=== PATIENT | male | born 1955 | race Caucasian/White ===

== ENCOUNTER 2016-08-18 19:09 | Emergency (ER) | payer MEDICARE, MEDICAID ==
[2016-08-18] MEDS ORDERED: diphenhydrAMINE HCl 50 MG/ML 1 ML VIAL ONE (19:22)
[2016-08-18] MEDS ORDERED: Metoprolol Tartrate 5 MG/5 ML VIAL ONE ×2 (19:25→19:27)
--- NOTE | 2016-08-18 19:36 | RAD ---
PORTABLE CHEST 08/18/16 COMPARISON: Comparison is made with a 01/03/15 study. This portable film at 1912 shows a normal sized heart and clear lungs. No infiltrate or effusion was seen. There is no vascular congestion or edema. A few tiny calcified granulomas are suggested in th e lungs. The trachea is midline. Scoliosis is noted as before. IMPRESSION: No acute thoracic finding. POS: HOME
[2016-08-18 19:37] LABS: #Basophils 0.1 thou/uL (0.0-0.2); #Eosinphils 0.3 thou/uL (0.0-0.7); #Lymphocytes 2.1 thou/uL (1.20-3.40); #Monocytes 0.8 thou/uL (0.11-0.59); #Neutrophils 6.1 thou/uL (1.40-6.50); %Eosinophils 3.2 % (0.0-10.0); %Lymphocytes 22.3 % (21.0-51.0); %Monocytes 8.6 % (0.0-10.0); %Neutrophils 64.9 % (42.0-75.0); Hemoglobin 13.4 g/dL (14.0-18.0); Mean Corpuscular HGB CONC 34.3 g/dL (32.0-36.0); Mean Corpuscular Hemoglobin 32.7 pg (27.0-31.0); Mean Corpuscular Volume 95.2 fl (80.0-94.0); Mean Platelet Volume 7.5 fL (7.4-10.4); Platelet Count 263 thou/uL (130-400); RBC Distribution Width 11.7 % (11.5-14.5); Red Blood Cell (RBC) Count 4.11 mill/uL (4.70-6.10); White Blood Cell (WBC) Count 9.3 thou/uL (4.8-10.8)
[2016-08-18 19:52] LABS: INR-International Normal Ratio 1.1; PTT 27.7 SEC (22.9-36.1)
[2016-08-18 19:57] LABS: ALT (SGPT) 67 U/L (0-55); AST (SGOT) 68 U/L (5-34); Alcohol Less than 10 mg/dL (Less than 10); Alkaline Phosphatase 54 U/L (40-150); Anion Gap 15 mmol/L (10-20); BUN (Urea Nitrogen) 22 mg/dL (8.4-25.7); Bilirubin, Total 0.4 mg/dL (0.2-1.2); Calc. Creatinine Clearance 0 mL/min (70-130); Carbon Dioxide 23 mmol/L (22-29); Chloride 105 mmol/L (98-107); Estimated GFR-MDRD 64; Globulin 3.9 g/dL (2.4-3.5); Glucose 117 mg/dL (70-105); Potassium 3.5 mmol/L (3.5-5.1); Protein, Total 7.9 g/dL (6.0-8.3); Sodium 139 mmol/L (136-145)
[2016-08-18 19:59] LABS: CKMB 3.4 ng/mL (0-6.6); Troponin I 0.042 ng/mL (< 0.028)
== END 2016-08-18 21:54 | disposition short-term general hospital (02) ==
LOC: BURERS 19:09
DX: R07.2 Precordial pain (principal); I25.2 Old myocardial infarction; K57.92 Diverticulitis of intestine, part unspecified, without perforation or abscess without bleeding; G89.29 Other chronic pain; M54.9 Dorsalgia, unspecified; I10 Essential (primary) hypertension; F17.210 Nicotine dependence, cigarettes, uncomplicated; Z79.82 Long term (current) use of aspirin; Z79.899 Other long term (current) drug therapy; Z98.890 Other specified postprocedural states
CPT/HCPCS: 71010; 80053; 80307; 82553; 83880; 84484; 85025; 85610; 85730; 93005; 94760; 96361; 96374; 96375; J1200; J2270

== ENCOUNTER 2017-05-17 10:42 | Outpatient (CLI) | payer MEDICARE, MEDICAID ==
--- NOTE | 2017-05-17 21:36 | RAD ---
LUMBAR SPINE THREE VIEWS 05/17/17 Comparison is made with the 12/07/14 study. There has been extensive prior surgery in the lower back with fusion and pedicle screws posteriorly a t L4 through S1. Disc replacements have been placed at each of the attendant levels. The positioning of those disc replacements seems similar to the prior study. There is an anterior compression of the L1 vertebral body. This was present before but it is a little more pronounced along the superior end plate today than previously. If this correlates with the site of pain, then it may be more recent. The remaining disc spaces are preserved. The SI joints are symm etrical. Mild scoliosis convexed left is noted, not a new finding. The visible portions of the bony p denise seem intact. IMPRESSION: 1. Extensive postoperative changes of the lower lumbar spine which are similar in appearance to the 12/07/14 study. 2. Mild anterior compression of L1, present previously, but the superior end plate appears a bit more compressed than before. Correlate with exact site of pain. Code T POS: HOME
== END 2017-05-17 10:43 | disposition home or self-care (01) ==
LOC: BURRAD 10:42
PROVIDERS: ATTEND Family Medicine
DX: M54.5 Low back pain (principal); G89.4 Chronic pain syndrome; Z98.890 Other specified postprocedural states
CPT/HCPCS: 72100

== ENCOUNTER 2017-11-01 17:57 | Emergency (ER) | payer MEDICAID, MEDICARE ==
[2017-11-01] MEDS ORDERED: Clindamycin 150 MG CAP ONE (18:13)
[2017-11-01] MEDS ORDERED: Acetaminophen/Codeine 30-300mg Tablet ONE (18:13)
== END 2017-11-01 18:17 | disposition home or self-care (01) ==
LOC: BURERS 17:57
DX: K04.7 Periapical abscess without sinus (principal); I25.2 Old myocardial infarction; I10 Essential (primary) hypertension; F17.210 Nicotine dependence, cigarettes, uncomplicated
CPT/HCPCS: 99283

== ENCOUNTER 2017-11-08 14:04 | Emergency (ER) | payer MEDICARE ==
[2017-11-08] MEDS ORDERED: Nitroglycerin 0.4 MG TAB (25 Tab Bottle) ONE (14:10)
[2017-11-08] MEDS ORDERED: Fentanyl 100 MCG/2 ML VIAL ONE ×2 (14:15→14:46)
[2017-11-08] MEDS ORDERED: Ketorolac Tromethamine 30 MG/ML VIAL ONE (14:46)
[2017-11-08] MEDS ORDERED: Ondansetron HCl/PF 4 MG/2 ML Vial ONE (14:52)
[2017-11-08 15:10] LABS: ALT (SGPT) 69 U/L (8-55); AST (SGOT) 82 U/L (5-34); Albumin 3.7 g/dL (3.5-5.0); Alkaline Phosphatase 52 U/L (40-150); Anion Gap 17 mmol/L (10-20); BUN (Urea Nitrogen) 11 mg/dL (8.4-25.7); Bilirubin, Total 0.9 mg/dL (0.2-1.2); CKMB 0.9 ng/mL (0-6.6); Calc. Creatinine Clearance 0 mL/min (70-130); Carbon Dioxide 20 mmol/L (22-29); Chloride 105 mmol/L (98-107); Estimated GFR-MDRD 64; Globulin 3.8 g/dL (2.4-3.5); Glucose 133 mg/dL (70-105); Lipase 8 U/L (8-78); Potassium 3.6 mmol/L (3.5-5.1); Protein, Total 7.5 g/dL (6.0-8.3); Sodium 138 mmol/L (136-145); Troponin I 0.019 ng/mL (< 0.028)
[2017-11-08 15:26] LABS: #Basophils 0.1 thou/uL (0.0-0.2); #Lymphocytes 0.5 thou/uL (1.20-3.40); #Monocytes 0.2 thou/uL (0.11-0.59); #Neutrophils 4.9 thou/uL (1.40-6.50); %Basophils 1.3 % (0.0-1.0); %Eosinophils 0.2 % (0.0-10.0); %Lymphocytes 9.3 % (21.0-51.0); %Monocytes 3.2 % (0.0-10.0); Hemoglobin 14.4 g/dL (14.0-18.0); Mean Corpuscular HGB CONC 36.1 g/dL (32.0-36.0); Mean Corpuscular Hemoglobin 31.1 pg (27.0-31.0); Mean Corpuscular Volume 86.3 fL (78.0-98.0); Mean Platelet Volume 7.3 fL (7.4-10.4); Platelet Count 111 thou/uL (130-400); RBC Distribution Width 11.4 % (11.5-14.5); Red Blood Cell (RBC) Count 4.64 mill/uL (4.70-6.10); White Blood Cell (WBC) Count 5.7 thou/uL (4.8-10.8)
[2017-11-08 15:28] LABS: MDiff Complete? YES
--- NOTE | 2017-11-08 16:26 | CT ---
CT ANGIO OF THE CHEST WITH CONTRAST 11/08/[address] of the chest was performed for evaluation of chest pain and low O2 saturation. Axial slices were acquired after a bolus of IV contrast. Coronal and oblique coronal reformations were done after wards. The timing of the contrast bolus is off such that opacification of the pulmonary arteries is suboptim al. As such the study is indeterminate for pulmonary embolism, however, there is certainly no large d efects in the larger more central branches to strongly suggest emboli. Medium sized branches and dist al branches cannot be evaluated accurately. The major finding on this study is multiple patchy infiltrates, many of which have a ground glass nod ular consistency. Some have air bronchograms within them. The findings are worse in the lower lobes t watters upper, but there are findings in all lobes. The left lower lobe seems to be the most involved. E mphysematous changes are present throughout the lungs. The findings would potentially obscure seeing or definitely identifying any smaller solid nodules. I would note that there is a single more solid a ppearing 6 to 7 mm nodule in the periphery of the base of the right upper lobe on slice 45. There is no spiculation around it. The mediastinum shows some mild increase in size of nodes, some as large as 1.9 cm in size. Some sang nary artery calcifications are present, primarily in the LAD, but also a small amount in the proximal right coronary artery. There is no sign of pericardial fluid. The cardiac size seems normal. There a re no effusions. The small hiatal hernia was noted. The liver is not imaged completely but is low in density suggestin g diffuse fatty infiltration. IMPRESSION: 1. Diffuse ground glass nodular infiltrates, all lobes, worst in the bases, particularly left lo wer lobe. Atypical infection is the most likely diagnosis. Viral pneumonias, pneumocystis, fungal or other atypical entities should be considered. It is noted that the patient's prior chest x-ray appear ed normal, so these have since then. 2. Mild coronary arteriosclerosis. 3. Fatty infiltration of the liver. 4. Small hiatal hernia. Findings discussed with Dr. Vicente at 1547 on 11/08/17. POS: HOME
--- NOTE | 2017-11-08 16:27 | RAD ---
PORTABLE CHEST: 11/08/17 Comparison is made with the 08/18/16 study. Patchy infiltrates are seen throughout the lungs bilaterally, a new finding since the prior study. Th ey seem worse on the left than the right. There are no large effusions. The heart size is normal. The re does not appear to be congestion of vessels. IMPRESSION: Interval appearance of patchy pulmonary infiltrates. See CT report to follow. POS: HOME
[2017-11-08] MEDS ORDERED: Acetaminophen 500 MG TAB ONE (17:00)
[2017-11-08 18:08] LABS: Clarity Clear (Clear)
[2017-11-08 18:09] LABS: pH, Urine 5.5 (5.0-9.0)
[2017-11-08 18:10] LABS: Bilirubin Negative (Negative); Blood, Urine Negative (Negative); Glucose, Urine (Dipstick) Negative (Negative); Leukocyte Negative (Negative); Nitrite Negative (Negative); Protein, Urine (Dipstick) Negative (Neg-Trace); Urobilinogen 0.2 mg/dL (0.2-1.0)
--- NOTE | 2017-11-09 00:50 | HP ---
CHIEF COMPLAINT: Chest pain, shortness of breath. HISTORY OF PRESENT ILLNESS: The patient is a 61-year-old male with a history of some coronary artery disease and a history of a severe pneumonia requiring intubation and life support in 2012. Patient reported he developed some generalized malaise and shortness of breath. Patient reported that he dev eloped some chest pain, shortness of breath, nausea, vomiting, and diarrhea with multiple episodes st arting around 4:00 morning. He reported that the chest discomfort was a pressure type sensa tion throughout his chest, but was worse with deep inspiration. He also had some associated abdomina l cramping with the nausea and vomiting. These symptoms persisted through today including some chill s and generalized myalgias. The patient subsequently presented to the emergency department in [facility]. At the emergency department in [place], the patient had a temperature of 101.5. He had a CT sc an of the chest performed which revealed diffuse ground glass nodular infiltrates in all lobes, worse in the bases, particularly left lower lobe. Atypical infection was deemed to be the most likely brenda gnosis including viral pneumonia pneumocystis, fungal or other atypical entities. It was noted the [facility] coronel's prior chest x-ray appeared normal and that these were new findings. The patient also had mi ld coronary atherosclerosis, fatty infiltration of the liver and the small hiatal hernia. Patient wa s noted to have O2 sats at 88% on room air. He was subsequently transferred here to the emergency de partment. Patient was also noted to have an elevated lactic acid level of 3.9 with repeat here at 3. 0. REVIEW OF SYSTEMS: Ten-point review of systems was negative except things mentioned in the history o f present illness. Specifically, he denies any substantial recent weight loss. PAST MEDICAL HISTORY: Notable for coronary artery disease with [facility] in 07/2016 with intracoronary sten t placement, hypertension, hyperlipidemia, chronic back pain, left leg pain which is chronic. The denisha dhaliwal had a significant double bilateral pneumonia in 2012 requiring intubation in life supportive nm asures. PAST SURGICAL HISTORY: Notable for left knee replacement, multiple back surgeries and the noted sang nary stent. FAMILY HISTORY: Father of melanoma. Mother of lung disease such as COPD. SOCIAL HISTORY: Patient has smoked 3-4 packs of cigarettes a day for 48 years. He denies chronic al cohol use, but does binge drink every few weeks up to a 12-pack of beer at those times. He does occa sionally use marijuana. He is since 2012. He lives with his daughter, son-in-law, and thei r 6 kids. 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 ALLERGIES: SULFA. CURRENT MEDICATIONS: Restoril 15 mg p.o. at bedtime, Zoloft 25 mg every day, Lyrica 150 mg b.i.d., o meprazole 20 mg every day, lisinopril 10 mg every day, hydrocodone/acetaminophen q.6 hours p.r.n., as pirin 325 b.i.d. PHYSICAL EXAMINATION: VITAL SIGNS: Pulse 78, respirations 22, BP 116/59, temperature 98.0, O2 sats 94% on 2 liters. GENERAL APPEARANCE: Age appropriate male in no distress. He is lying supine in the exam bed. He is awake, alert, oriented, very pleasant, cooperative. HEENT: PERRL, anicteric sclerae. No OP lesions. NECK: Supple and symmetric. There is some shotty right anterior cervical chain lymphadenopathy whic h is nontender. HEART: Regular rate and rhythm without murmurs, gallops or rubs. LUNGS: Diminished bilaterally, especially at the bases with minimal scattered rales. ABDOMEN: Soft, nontender, nondistended, positive bowel sounds. No masses or organomegaly. EXTREMITIES: Warm and dry with no edema, no palpable cords. SKIN: Reveals severe actinic keratosis over the arms, shoulders and neck area. He has a small scrat ch on the left pres[place]eter[place] area which is fairly fresh with minimal bleeding. LABORATORY DATA: White count 5.7, hemoglobin 14.4, platelets 111. D-dimer is 148. Chemistry is not able for CO2 of 20, glucose 133. Lactic acid initially 3.9 subsequent 3.0, AST is 82, ALT is 69. Ur inalysis is negative. EKG: His EKG showed sinus rhythm at 122 beats a minute. IMPRESSION AND PLAN: 1. Pulmonary: The patient appears to have some type of an atypical pneumonia. His CT scan shows bi lateral scattered patchy type infiltrates which certainly are not consistent with a typical bacterial pneumonia. He will be covered with Rocephin and azithromycin. We will consult Pulmonology and Infe ctious Disease. We will try to obtain a sputum culture. We will also check an LDH level. 2. Cardiac: The patient has had some chest pain, although it sounds atypical. He does have a histo ry of coronary artery disease and significant risk factors. We will keep him on telemetry and get se rial troponins. 3. Thrombocytopenia of unclear etiology. We will recheck tomorrow. 4. Elevated D-dimer without evidence of a pulmonary embolus on CT scan. We will obtain lower extrem ity Dopplers. 5. 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 6. Hypertension. We will continue with the usual outpatient regimen of antihypertensives. 7. Hyperlipidemia. Continue his usual home regimen. DISPOSITION: Patient is a F[employer] and his daughter, Bridgett Khan at [phone] would be his surr ogate decision maker should the need arise.
== END 2017-11-08 18:18 | disposition short-term general hospital (02) ==
LOC: BURERS 14:04
DX: A41.9 Sepsis, unspecified organism (principal); J18.9 Pneumonia, unspecified organism; R09.02 Hypoxemia; I10 Essential (primary) hypertension; G89.29 Other chronic pain; M54.9 Dorsalgia, unspecified; F17.210 Nicotine dependence, cigarettes, uncomplicated; Z79.899 Other long term (current) drug therapy
CPT/HCPCS: 71045; 71275; 80053; 81003; 82553; 83605; 83690; 83880; 84484; 85025; 85379; 87040; 93005; 94640; 94760; 96365; 96366; 96367; 96372; 96375; J1885; J1956; J2405; J3010; J3370; J7620

== ENCOUNTER 2018-06-04 13:00 | Emergency (ER) | payer MEDICARE, MEDICAID ==
[2018-06-04 14:15] LABS: ALT (SGPT) 50 U/L (8-55); AST (SGOT) 54 U/L (5-34); Albumin 3.7 g/dL (3.4-4.8); Alcohol Less than 10 mg/dL (Less than 10); Alkaline Phosphatase 66 U/L (40-150); Anion Gap 14 mmol/L (10-20); BUN (Urea Nitrogen) 16 mg/dL (8.4-25.7); Bilirubin, Total 0.4 mg/dL (0.2-1.2); Calc. Creatinine Clearance 0 mL/min (70-130); Calcium 8.8 mg/dL (7.8-10.44); Carbon Dioxide 23 mmol/L (23-31); Chloride 110 mmol/L (98-107); Estimated GFR-MDRD 75; Glucose 100 mg/dL (80-115); Potassium 4.1 mmol/L (3.5-5.1); Protein, Total 6.7 g/dL (5.8-8.1); Sodium 143 mmol/L (136-145)
[2018-06-04 14:18] LABS: #Eosinphils 0.2 thou/uL (0.0-0.7); #Lymphocytes 1.4 thou/uL (1.20-3.40); #Monocytes 0.4 thou/uL (0.11-0.59); #Neutrophils 4.1 thou/uL (1.40-6.50); %Basophils 0.7 % (0.0-1.0); %Eosinophils 3.1 % (0.0-10.0); %Lymphocytes 22.6 % (21.0-51.0); %Monocytes 7.1 % (0.0-10.0); %Neutrophils 66.5 % (42.0-75.0); Hemoglobin 12.4 g/dL (14.0-18.0); Mean Corpuscular HGB CONC 34.9 g/dL (32.0-36.0); Mean Corpuscular Hemoglobin 31.5 pg (27.0-31.0); Mean Corpuscular Volume 90.4 fL (78.0-98.0); Mean Platelet Volume 6.8 fL (7.4-10.4); Platelet Count 89 thou/uL (130-400); RBC Distribution Width 11.3 % (11.5-14.5); Red Blood Cell (RBC) Count 3.92 mill/uL (4.70-6.10); White Blood Cell (WBC) Count 6.2 thou/uL (4.8-10.8)
[2018-06-04 14:19] LABS: MDiff Complete? YES; Manual Diff?? YES
[2018-06-04 14:20] LABS: Platelet Morphology Comment DECREASED ON SMEAR
--- NOTE | 2018-06-04 14:45 | CT ---
CT HEAD NONCONTRAST: Date: 06/04/18 HISTORY: Altered mental status. FINDINGS: No comparison. There is no evidence of acute intracranial hemorrhage or infarct. Ventricles appear normal in size, s hape, and position. There is no mass effect or shift of midline structures. IMPRESSION: No acute intracranial abnormalities are demonstrated. POS: [facility]
--- NOTE | 2018-06-04 15:12 | RAD ---
CHEST ONE VIEW: History: Dyspnea. Comparison: 12-13-17 FINDINGS: Cardiac silhouette is magnified by projection. Pulmonary vasculature is unremarkable. Mediastinum is midline. No lobar consolidation or evidence of pneumothorax. IMPRESSION: No active cardiopulmonary abnormalities are demonstrated. POS: [facility]
[2018-06-04 15:40] LABS: Bilirubin Negative (Negative); Blood, Urine Negative (Negative); Clarity Clear (Clear); Glucose, Urine (Dipstick) Negative (Negative); Leukocyte Negative (Negative); Nitrite Negative (Negative); Protein, Urine (Dipstick) Negative (Neg-Trace); Urobilinogen 0.2 mg/dL (0.2-1.0)
[2018-06-04 16:16] LABS: THC/Cannabinoid Screen Detected (NotDetected)
[2018-06-04 16:17] LABS: Amphetamine Not Detected (NotDetected); Barbiturates Screen Not Detected (NotDetected); Benzodiazepine Screen Not Detected (NotDetected); Cocaine Metabolite Screen Not Detected (NotDetected); Medtox Control Line Valid? VALID (VALID); Methadone Not Detected (NotDetected); Methamphetamine Not Detected (NotDetected); Opiate Screen Not Detected (NotDetected); Oxycodone Screen Not Detected (NotDetected); Phencyclidine (PCP) Not Detected (NotDetected); Tricyclic Screen Not Detected (NotDetected)
== END 2018-06-04 15:27 | disposition home or self-care (01) ==
LOC: BURERS 13:00
DX: R11.2 Nausea with vomiting, unspecified (principal); I10 Essential (primary) hypertension; F17.210 Nicotine dependence, cigarettes, uncomplicated; Z79.82 Long term (current) use of aspirin; Z79.899 Other long term (current) drug therapy
CPT/HCPCS: 36415; 70450; 71045; 80053; 80306; 80307; 81003; 83605; 84484; 85025; 93005; 94760

== ENCOUNTER 2018-07-05 06:22 | Emergency (ER) | payer MEDICARE, MEDICAID ==
[2018-07-05] MEDS ORDERED: AMOXicillin 250 MG CAP ONE (06:39)
== END 2018-07-05 06:45 | disposition home or self-care (01) ==
LOC: BURERS 06:22
DX: K04.7 Periapical abscess without sinus (principal); I10 Essential (primary) hypertension; F17.210 Nicotine dependence, cigarettes, uncomplicated; Z79.891 Long term (current) use of opiate analgesic; Z79.899 Other long term (current) drug therapy
CPT/HCPCS: 99282

== ENCOUNTER 2020-09-10 01:41 | Emergency (ER) | payer MEDICARE, MEDICAID ==
[2020-09-10 02:04] LABS: #Basophils 0.1 thou/uL (0.0-0.2); #Eosinphils 0.1 thou/uL (0.0-0.7); #Lymphocytes 1.5 thou/uL (1.20-3.40); #Monocytes 0.5 thou/uL (0.11-0.59); #Neutrophils 7.5 thou/uL (1.40-6.50); %Basophils 0.8 % (0.0-1.0); %Eosinophils 1.1 % (0.0-10.0); %Lymphocytes 15.1 % (21.0-51.0); %Monocytes 5.2 % (0.0-10.0); %Neutrophils 77.8 % (42.0-75.0); Hemoglobin 16.1 g/dL (14.0-18.0); Mean Corpuscular HGB CONC 33.3 g/dL (32.0-36.0); Mean Corpuscular Hemoglobin 31.7 pg (27.0-31.0); Mean Corpuscular Volume 95.3 fL (78.0-98.0); Mean Platelet Volume 7.3 fL (7.4-10.4); Platelet Count 213 thou/uL (130-400); RBC Distribution Width 12.6 % (11.5-14.5); Red Blood Cell (RBC) Count 5.09 mill/uL (4.70-6.10); White Blood Cell (WBC) Count 9.7 thou/uL (4.8-10.8)
[2020-09-10] MEDS ORDERED: Morphine 4 MG/ML VIAL ONE (02:08)
[2020-09-10 02:12] LABS: INR-International Normal Ratio 0.9; Prothrombin Time 12.8 sec (12.0-14.7)
[2020-09-10 02:20] LABS: ALT (SGPT) 18 U/L (8-55); AST (SGOT) 33 U/L (5-34); Albumin 4.4 g/dL (3.4-4.8); Alkaline Phosphatase 85 U/L (40-110); Anion Gap 19 mmol/L (10-20); BUN (Urea Nitrogen) 10 mg/dL (8.4-25.7); Calc. Creatinine Clearance 0 mL/min (70-130); Calcium 9.1 mg/dL (7.8-10.44); Carbon Dioxide 24 mmol/L (23-31); Chloride 100 mmol/L (98-107); Globulin 3.9 g/dL (2.4-3.5); Glucose 111 mg/dL (80-115); Potassium 3.5 mmol/L (3.5-5.1); Protein, Total 8.3 g/dL (5.8-8.1); Sodium 139 mmol/L (136-145)
[2020-09-10 02:42] LABS: Bilirubin, Total 0.3 mg/dL (0.2-1.2)
== END 2020-09-10 03:15 | disposition short-term general hospital (02) ==
LOC: BURERS 01:41
DX: R55 Syncope and collapse (principal); S02.19XA Other fracture of base of skull, initial encounter for closed fracture; S02.119A Unspecified fracture of occiput, initial encounter for closed fracture; S06.2X9A Diffuse traumatic brain injury with loss of consciousness of unspecified duration, initial encounter; E11.9 Type 2 diabetes mellitus without complications; I10 Essential (primary) hypertension; I25.2 Old myocardial infarction; F17.210 Nicotine dependence, cigarettes, uncomplicated; Z79.899 Other long term (current) drug therapy
CPT/HCPCS: 70450; 70486; 71045; 72125; 80053; 83880; 84484; 85025; 85610; 93005; 96374; J2270

== ENCOUNTER 2021-10-20 21:32 | Emergency (ER) | payer MEDICARE, MEDICAID ==
[2021-10-20 21:58] LABS: #Basophils 0.1 thou/uL (0.0-0.2); #Eosinphils 0.1 thou/uL (0.0-0.7); #Lymphocytes 1.9 thou/uL (1.20-3.40); #Monocytes 0.7 thou/uL (0.11-0.59); #Neutrophils 8.7 thou/uL (1.40-6.50); %Basophils 0.9 % (0.0-1.0); %Eosinophils 0.6 % (0.0-10.0); %Lymphocytes 16.9 % (21.0-51.0); %Monocytes 6.3 % (0.0-10.0); %Neutrophils 75.3 % (42.0-75.0); Hemoglobin 15.4 g/dL (14.0-18.0); Mean Corpuscular HGB CONC 34.3 g/dL (32.0-36.0); Mean Corpuscular Hemoglobin 32.6 pg (27.0-31.0); Mean Corpuscular Volume 95.1 fL (78.0-98.0); Mean Platelet Volume 8.1 fL (7.4-10.4); Platelet Count 212 thou/uL (130-400); RBC Distribution Width 11.6 % (11.5-14.5); Red Blood Cell (RBC) Count 4.73 mill/uL (4.70-6.10); White Blood Cell (WBC) Count 11.5 thou/uL (4.8-10.8)
[2021-10-20 22:04] LABS: INR-International Normal Ratio 1.1; Prothrombin Time 14.2 sec (12.0-14.7)
[2021-10-20 22:13] LABS: ALT (SGPT) 23 U/L (8-55); AST (SGOT) 23 U/L (5-34); Albumin 4.4 g/dL (3.4-4.8); Alkaline Phosphatase 59 U/L (40-110); Anion Gap 22 mmol/L (10-20); BUN (Urea Nitrogen) 15 mg/dL (8.4-25.7); Bilirubin, Total 1.1 mg/dL (0.2-1.2); Calc. Creatinine Clearance 0 mL/min (70-130); Calcium 9.4 mg/dL (7.8-10.44); Carbon Dioxide 24 mmol/L (23-31); Chloride 99 mmol/L (98-107); Globulin 3.3 g/dL (2.4-3.5); Glucose 177 mg/dL (80-115); Potassium 3.9 mmol/L (3.5-5.1); Protein, Total 7.7 g/dL (5.8-8.1); Sodium 141 mmol/L (136-145)
[2021-10-20] MEDS ORDERED: Norepinephrine 4 MG/4 ML VIAL ONE ×2 (22:56→22:58)
[2021-10-21 00:13] LABS: Anion Gap 17 mmol/L (10-20)
[2021-10-21 00:15] LABS: BUN (Urea Nitrogen) 14 mg/dL (8.4-25.7); Calc. Creatinine Clearance 0 mL/min (70-130); Calcium 7.9 mg/dL (7.8-10.44); Carbon Dioxide 22 mmol/L (23-31); Chloride 106 mmol/L (98-107); Glucose 104 mg/dL (80-115); Sodium 141 mmol/L (136-145)
== END 2021-10-21 02:24 | disposition short-term general hospital (02) ==
LOC: BURERS 21:32
DX: N17.9 Acute kidney failure, unspecified (principal); E86.0 Dehydration; I95.9 Hypotension, unspecified; E11.9 Type 2 diabetes mellitus without complications; I25.2 Old myocardial infarction; F17.210 Nicotine dependence, cigarettes, uncomplicated
CPT/HCPCS: 36415; 70450; 71250; 74177; 80053; 82550; 83605; 84484; 85025; 85610; 85730; 93005

== ENCOUNTER 2022-03-20 07:31 | Emergency (ER) | payer OTHER, MEDICAID ==
[2022-03-20 08:17] LABS: Bilirubin Negative (Negative); Blood, Urine Negative (Negative); Clarity Clear (Clear); Glucose, Urine (Dipstick) Negative (Negative); Ketone, Urine Trace mg/dL (Negative); Leukocyte Negative (Negative); Nitrite Negative (Negative); Protein, Urine (Dipstick) Negative (Neg-Trace); Specific Gravity, Urine 1.015 (1.005-1.030); Urobilinogen 0.2 mg/dL (Less than 2); pH, Urine 5.5 (5.0-9.0)
[2022-03-20 08:31] LABS: #Eosinphils 0.1 thou/uL (0.0-0.7); #Lymphocytes 1.1 thou/uL (1.20-3.40); #Monocytes 0.6 thou/uL (0.11-0.59); #Neutrophils 5.6 thou/uL (1.40-6.50); %Basophils 0.6 % (0.0-1.0); %Eosinophils 1.1 % (0.0-10.0); %Lymphocytes 14.4 % (21.0-51.0); %Monocytes 7.6 % (0.0-10.0); %Neutrophils 76.3 % (42.0-75.0); Hemoglobin 14.5 g/dL (14.0-18.0); Mean Corpuscular HGB CONC 34.7 g/dL (32.0-36.0); Mean Corpuscular Hemoglobin 32.8 pg (27.0-31.0); Mean Corpuscular Volume 94.6 fl (78.0-98.0); Mean Platelet Volume 7.5 fL (7.4-10.4); Platelet Count 170 10x3/uL (130-400); RBC Distribution Width 12.3 % (11.5-14.5); Red Blood Cell (RBC) Count 4.43 mill/uL (4.70-6.10); White Blood Cell (WBC) Count 7.3 10x3/uL (4.8-10.8)
[2022-03-20] MEDS ORDERED: Acetaminophen 500 MG TAB ONE (08:31)
[2022-03-20] MEDS ORDERED: Ondansetron PF 4 MG/2 ML Vial ONE (08:31)
[2022-03-20] MEDS ORDERED: Ketorolac Tromethamine 30 MG/ML VIAL ONE ×2 (08:31→09:42)
[2022-03-20 08:46] LABS: ALT (SGPT) 16 U/L (8-55); AST (SGOT) 25 U/L (5-34); Albumin 4.3 g/dL (3.4-4.8); Alkaline Phosphatase 63 U/L (40-110); Anion Gap 15 mmol/L (10-20); BUN (Urea Nitrogen) 13 mg/dL (8.4-25.7); Bilirubin, Total 0.4 mg/dL (0.2-1.2); Calc. Creatinine Clearance 0 mL/min (70-130); Calcium 8.9 mg/dL (7.8-10.44); Carbon Dioxide 23 mmol/L (23-31); Chloride 104 mmol/L (98-107); Estimated GFR 84; Globulin 3.2 g/dL (2.4-3.5); Glucose 124 mg/dL (80-115); Lipase 28 U/L (8-78); Potassium 3.7 mmol/L (3.5-5.1); Protein, Total 7.5 g/dL (5.8-8.1); Sodium 138 mmol/L (136-145)
== END 2022-03-20 10:00 | disposition home or self-care (01) ==
LOC: BURERS 07:31
DX: B34.9 Viral infection, unspecified (principal); E11.9 Type 2 diabetes mellitus without complications; I10 Essential (primary) hypertension; F17.210 Nicotine dependence, cigarettes, uncomplicated; Z79.899 Other long term (current) drug therapy
CPT/HCPCS: 36415; 71045; 80053; 81003; 83605; 83690; 85025; 96361; 96374; 96375; 96376; J1885; J2405

== ENCOUNTER 2022-04-25 20:14 | Emergency (ER) | payer OTHER, MEDICAID ==
[2022-04-25] MEDS ORDERED: Ondansetron PF 4 MG/2 ML Vial ONE (20:44)
[2022-04-25 21:05] LABS: #Lymphocytes 1.6 thou/uL (1.20-3.40); #Monocytes 0.7 thou/uL (0.11-0.59); #Neutrophils 8.8 thou/uL (1.40-6.50); %Basophils 0.2 % (0.0-1.0); %Eosinophils 0.1 % (0.0-10.0); %Lymphocytes 14.6 % (21.0-51.0); %Monocytes 6.5 % (0.0-10.0); %Neutrophils 78.6 % (42.0-75.0); Hemoglobin 13.6 g/dL (14.0-18.0); Mean Corpuscular HGB CONC 34.1 g/dL (32.0-36.0); Mean Corpuscular Volume 93.7 fl (78.0-98.0); Mean Platelet Volume 8.2 fL (7.4-10.4); Platelet Count 182 10x3/uL (130-400); RBC Distribution Width 11.9 % (11.5-14.5); Red Blood Cell (RBC) Count 4.26 mill/uL (4.70-6.10); White Blood Cell (WBC) Count 11.2 10x3/uL (4.8-10.8)
[2022-04-25 21:20] LABS: ALT (SGPT) 51 U/L (8-55); AST (SGOT) 70 U/L (5-34); Albumin 4.1 g/dL (3.4-4.8); Alkaline Phosphatase 56 U/L (40-110); Anion Gap 15 mmol/L (10-20); BUN (Urea Nitrogen) 15 mg/dL (8.4-25.7); Bilirubin, Total 0.6 mg/dL (0.2-1.2); Calc. Creatinine Clearance 0 mL/min (70-130); Calcium 8.7 mg/dL (7.8-10.44); Carbon Dioxide 21 mmol/L (23-31); Chloride 105 mmol/L (98-107); Estimated GFR 83; Globulin 3.6 g/dL (2.4-3.5); Glucose 98 mg/dL (80-115); Lipase 46 U/L (8-78); Potassium 3.7 mmol/L (3.5-5.1); Protein, Total 7.7 g/dL (5.8-8.1); Sodium 137 mmol/L (136-145)
[2022-04-25 21:56] LABS: Bilirubin Negative (Negative); Blood, Urine Negative (Negative); Clarity Clear (Clear); Glucose, Urine (Dipstick) Negative (Negative); Ketone, Urine Trace mg/dL (Negative); Leukocyte Negative (Negative); Nitrite Negative (Negative); Protein, Urine (Dipstick) 100 mg/dL (Neg-Trace); Urobilinogen 0.2 mg/dL (Less than 2)
[2022-04-25 22:10] LABS: Bacteria/HPF Rare-Few HPF (None Seen); RBC/HPF None Seen HPF (0-3); Squamous Epithelial None Seen HPF (0-3); WBC/HPF None Seen HPF (0-3)
[2022-04-25] MEDS ORDERED: Doxycycline 100 MG CAP ONE (22:53)
[2022-04-25] MEDS ORDERED: metroNIDAZOLE 250 MG TAB ONE (22:53)
== END 2022-04-25 23:05 | disposition home or self-care (01) ==
LOC: BURERS 20:14
DX: K52.9 Noninfective gastroenteritis and colitis, unspecified (principal); E11.9 Type 2 diabetes mellitus without complications; I10 Essential (primary) hypertension; Z79.899 Other long term (current) drug therapy; Z79.82 Long term (current) use of aspirin
CPT/HCPCS: 80053; 81003; 81015; 83605; 83690; 85025; 87324; 87449; 93005; 96374; J2405

== ENCOUNTER 2023-01-28 11:03 | Emergency (ER) | payer OTHER, MEDICAID ==
[2023-01-28] MEDS ORDERED: Ketorolac Tromethamine 60 MG/2 ML VIAL ONE (11:26)
[2023-01-28] MEDS ORDERED: Cyclobenzaprine 10 MG TAB ONE (11:26)
== END 2023-01-28 11:31 | disposition home or self-care (01) ==
LOC: BURERS 11:03
DX: M43.6 Torticollis (principal); I10 Essential (primary) hypertension; E11.9 Type 2 diabetes mellitus without complications; F17.210 Nicotine dependence, cigarettes, uncomplicated; I25.2 Old myocardial infarction; I25.10 Atherosclerotic heart disease of native coronary artery without angina pectoris; Z95.5 Presence of coronary angioplasty implant and graft
CPT/HCPCS: 96372; 99283; J1885